=== PATIENT | female | born 1965 | race Caucasian/White ===

== ENCOUNTER 2017-01-22 16:52 | Emergency (ER) | payer BC ==
[~2017-01-22 16:52] MED LIST: LEXAPRO20 MG PO; LOSARTAN-HCTZ1 EAC1 PO
[2017-01-22 17:44] LABS: BASOPHIL# 0.1 X10e3 (0-0.3); BASOPHIL% 0.6 % (0-2.5); EOSINOPHIL# 0.1 X10e3 (0-0.7); EOSINOPHIL% 0.3 % (0.0-7.0); HEMOGLOBIN 12.9 gm/dL (12.0-16.0); LYMPHOCYTE# 1.5 X10e3 (1.0-3.5); LYMPHOCYTE% 7.4 % (17.0-45.0); MEAN CELL VOLUME 84.9 FL (83-96); MEAN CORPUSCULAR HEMOGLOBIN 28.8 PG (28-34); MEAN CORPUSCULAR HGB CONC 33.9 g/dL (30-36); MEAN PLATELET VOLUME 9.6 FL (6.5-11.5); MONOCYTE# 1.1 X10e3 (0-1.0); MONOCYTE% 5.6 % (3.0-12.0); NEUTROPHIL# 17.1 X10e3 (1.5-7.1); NEUTROPHIL% 86.1 % (40-75); PLATELET COUNT 392 X10e3 (140-420); RED BLOOD COUNT 4.47 X10e (3.90-5.30); RED CELL DISTRIBUTION WIDTH 13.1 % (11.0-15.5); WHITE BLOOD COUNT 19.8 X10e3 (4.0-10.5)
[2017-01-22 17:45] LABS: DIFF IND NO
[2017-01-22 18:02] LABS: ALBUMIN SERUM 4.4 g/dL (3.5-5.0); BILIRUBIN,TOTAL 1.7 mg/dL (0.2-2.0); BUN/CREATININE RATIO 25.55; CALCIUM SERUM 9.5 mg/dL (8.4-10.2); CREATININE SERUM 0.9 mg/dL (0.6-1.4); GLOM FILT RATE Estimated 75.1 mL/min (>60); POTASSIUM 3.2 mmol/L (3.5-5.1); PROTEIN TOTAL SERUM 8.6 g/dL (6.0-8.3)
== END 2017-01-22 19:05 | disposition home or self-care (01) ==
LOC: SED 16:52
PROVIDERS: Nurse Practitioner Family
DX: T78.40XA Allergy, unspecified, initial encounter (principal); J02.9 Acute pharyngitis, unspecified; Z90.710 Acquired absence of both cervix and uterus; Z79.899 Other long term (current) drug therapy; Z88.1 Allergy status to other antibiotic agents; Z88.8 Allergy status to other drugs, medicaments and biological substances
CPT/HCPCS: 36415; 80053; 85025; 86308; 96374; 96375; 99283; J1200; J2930